=== PATIENT | female | born 1995 | race Caucasian/White ===

== ENCOUNTER → 2021-02-08 14:07 | Outpatient (BNVA) | payer OTHER, SELFPAY | PROVIDERS: Visit Provider Obstetrics & Gynecology | DX: N97.9 Female infertility, unspecified (principal); N89.8 Other specified noninflammatory disorders of vagina | CPT/HCPCS: 84702; 85025; 86850; 86900; 87491; 87591 ==

== ENCOUNTER → 2021-03-07 12:15 | Outpatient (BNVA) | payer OTHER, SELFPAY | PROVIDERS: Visit Provider Obstetrics & Gynecology | DX: Z34.90 Encounter for supervision of normal pregnancy, unspecified, unspecified trimester (principal) | CPT/HCPCS: 80053; 80307; 82950; 84315; 84443; 85027; 86592; 86762; 86803; 86850; 86900; 87086; 87340; 87806 ==

== ENCOUNTER 2021-03-22 12:17 | Outpatient (CLI) | payer OTHER, SELFPAY ==
[2021-03-22 12:34] VITALS: BP 142/96; PULSE 109; RESP 18; TEMP 36.5; O2SAT 99; BMI 41.8
[2021-03-22 13:05] VITALS: BP 133/92; PULSE 106; RESP 20; TEMP 36.6; O2SAT 97
[2021-03-22 14:05] VITALS: BP 123/84; PULSE 99; RESP 18; O2SAT 98
== END 2021-03-22 12:18 | disposition home or self-care (01) ==
LOC: OPS 12:18
PROVIDERS: Visit Provider Nurse Practitioner Family
DX: U07.1 COVID-19 (principal)
CPT/HCPCS: 96365

== ENCOUNTER → 2021-03-28 11:55 | Outpatient (BNVA) | payer OTHER, SELFPAY | PROVIDERS: Visit Provider Obstetrics & Gynecology | DX: Z34.80 Encounter for supervision of other normal pregnancy, unspecified trimester (principal); Z12.4 Encounter for screening for malignant neoplasm of cervix | CPT/HCPCS: 84315; 88175 ==

== ENCOUNTER → 2021-05-03 13:08 | Outpatient (BNVA) | payer OTHER, SELFPAY | PROVIDERS: Visit Provider Obstetrics & Gynecology | DX: O09.90 Supervision of high risk pregnancy, unspecified, unspecified trimester (principal); R74.8 Abnormal levels of other serum enzymes | CPT/HCPCS: 80053; 84315 ==

== ENCOUNTER → 2021-06-27 09:49 | Outpatient (BNVA) | payer OTHER, SELFPAY | PROVIDERS: Visit Provider Obstetrics & Gynecology | DX: O09.90 Supervision of high risk pregnancy, unspecified, unspecified trimester (principal); Z3A.00 Weeks of gestation of pregnancy not specified | CPT/HCPCS: 80053; 82950; 84315; 85027; 86850 ==

== ENCOUNTER → 2021-07-25 11:31 | Outpatient (BNVA) | payer OTHER, SELFPAY | PROVIDERS: Visit Provider Obstetrics & Gynecology | DX: O09.90 Supervision of high risk pregnancy, unspecified, unspecified trimester (principal); O98.519 Other viral diseases complicating pregnancy, unspecified trimester; U07.1 COVID-19; O99.210 Obesity complicating pregnancy, unspecified trimester; R74.8 Abnormal levels of other serum enzymes; O99.891 Other specified diseases and conditions complicating pregnancy; O26.899 Other specified pregnancy related conditions, unspecified trimester; Z67.91 Unspecified blood type, Rh negative; F41.9 Anxiety disorder, unspecified; F32.A Depression, unspecified; Z3A.00 Weeks of gestation of pregnancy not specified | CPT/HCPCS: 80053; 84315 ==

== ENCOUNTER 2021-08-06 01:53 | Inpatient (IN) | payer OTHER, SELFPAY ==
[2021-08-05] VITALS (37 sets, daily range): BP systolic 138–183; BP diastolic 68–108; PULSE 84–166; RESP 18; TEMP 36.1; O2SAT 90–100; BMI 41.1
--- NOTE | 2021-08-05 19:14 | USR_ITS ---
PROCEDURE INFORMATION: Exam: US , Limited Exam date and time: 08/05/2021 7:43 PM Age: 25 years old Clinical indication: status abnormalities: ; movements, decreased; Single gestation; Third trimester (=28 weeks 0 days); ; Additional info: Decreased movement TECHNIQUE: Imaging protocol: Real-time ultrasound of the maternal uterus with image documentation. Exam focused on the clinical indication. COMPARISON: US OB follow up [facility] 07/25/2021 10:53 AM FINDINGS: Gestation: There is a single live intrauterine fetus. Detailed anatomic assessment was not performed at this time. heart rate: cardiac activity measures 141 bpm. position: The is in cephalic position. Placenta: Placenta is fundal in position. Amniotic fluid index: Amniotic fluid index is 18.6 cm within normal limits. Median at 35 weeks is about 14 cm and 95th percentile is 24.9 cm. BIOMETRY: Gestational age (AUA): Average ultrasound biometry is 35 weeks 4 days gestation, approximately 63rd percentile. Estimated weight: Estimated weight is 2563 g, or 5 lb 10 oz. MATERNAL: Cervix: Maternal cervix is poorly visualized on this exam. Intraperitoneal space: Limited transabdominal OB ultrasound exam was performed in conjunction with biophysical profile assessment below. Other findings: BPD measures 8.6 cm, 34 weeks 3 days gestation, 27th percentile. Head circumference measures 32.1 cm, 36 weeks 1 day, 36 percentile. Abdominal circumference measures 31.7 cm, 35 weeks 4 days, 65th percentile. Femur length measures 6.5 cm, 33 weeks 3 days, 5th percentile. PROCEDURE INFORMATION: Exam: US Biophysical Profile Without Non-Stress Test Exam date and time: 08/05/2021 7:43 PM Age: 25 years old Clinical indication: status abnormalities: ; movements, decreased; Single gestation; Third trimester (=28 weeks 0 days); ; Additional info: Decreased movement TECHNIQUE: Imaging protocol: US biophysical profile without non-stress testing. COMPARISON: US OB >= 14 weeks fetus [facility] 05/01/2021 8:14 AM FINDINGS: BIOPHYSICAL PROFILE: breathing movement (BPP): 2 out of 2. body movement (BPP): 2 out of 2. tone (BPP): 2 out of 2. Amniotic fluid (BPP): 2 out of 2. US/US OB BPP wo NST 99669 IMPRESSION: 1. Limited Ob ultrasound in conjunction with biophysical profile assessment below. 2. Single live intrauterine fetus in cephalic lie with average ultrasound biometry of 35 weeks 4 days, versus clinical gestational age of 34 weeks 6 days. Measurements and EFW as described above. Suboptimally visualized maternal cervix on this exam. IMPRESSION: 1. Biophysical profile score is 8 out of 8. 2. Please refer to limited Ob ultrasound report above.
[2021-08-05 19:39] LABS: Add Urine Culture? No; Add Urine Microscopic? YES; Amorphous Sediment Urine 1+ /hpf; Bacteria Urine 1+ /hpf; Bilirubin Urine 1+ (Negative); Blood Urine Neg (Negative); Glucose Urine UA Norm (Normal); Ketones Urine 2+ (Negative); Leukocyte Esterase Urine 2+ (Negative); Mucus Urine 1+ /hpf; Nitrate Urine Negative (Negative); Protein Urine Trace (Negative); RBC Urine 0-4 /hpf (0-2); Squamous Epithelial Cell Urine 25-40 /hpf (0-5); Urine Appearance Cloudy (CLEAR); Urine Color Yellow (Yellow); Urobilinogen Urine 1 mg/dL (Negative); pH Urine 5 (5-7)
[2021-08-05 19:59] LABS: UPRO/UCREAT Ratio 0.17 mg/mg CR; Urine Creatinine 387 mg/dL (28-217); Urine Protein Random 64 mg/dL
[2021-08-05 20:18] LABS: Basophils % 0.2 %; Hematocrit 36.4 % (37.0-47.0); Hemoglobin 12.3 g/dL (11.5-15.3); Lymphocytes # 2.1 10^3/uL (0.8-4.8); Lymphocytes % 19.7 %; Mean Corpuscular HGB Conc 33.8 g/dL (30.0-36.0); Mean Corpuscular Hemoglobin 29.6 pg (28.0-34.0); Mean Corpuscular Volume 87.7 fl (81-99); Monocytes # 0.6 10^3/uL (0.2-0.9); Monocytes % 5.9 %; Neutrophils # 7.85 10^3/uL (1.8-7.7); Neutrophils % 73.8 %; Nucleated Red Blood Cells % 0 %; Platelet Count 240 10^3/cmm (130-400); Red Blood Count 4.15 10^6/uL (4.1-5.3); Red Cell Distribution Width 14.2 % (12.1-15.1); White Blood Count 10.6 10^3/uL (4.0-10.0)
[2021-08-05 20:30] LABS: Alanine Aminotransferase 14 U/L (0-33); Albumin Level 3.5 g/dL (3.5-5.2); Alkaline Phosphatase 95 IU/L (35-105); Aspartate Amino Transferase 20 U/L (0-32); Blood Urea Nitrogen 5 mg/dL (6-20); Calcium 9.3 mg/dL (8.5-10.5); Carbon Dioxide 19 mmol/L (22-29); Chloride 101 mmol/L (98-107); Globulin 2.8 g/dL (1.3-4.6); Glomerular Filtration Rate 121.8 mL/min (90-130); Glucose 73 mg/dL (65-115); Osmolality Calculated 274 mOsm/kg (285-295); Sodium 134 mmol/L (136-145); Total Bilirubin 0.4 mg/dL (0.15-1.2); Total Protein 6.3 g/dL (6.6-8.7); Uric Acid 5.4 mg/dL (2.4-5.7)
[2021-08-05 20:31] LABS: Anion Gap 17.7 (5-19); Potassium 3.7 mmol/L (3.5-5.1)
[2021-08-05] MEDS: NIFEdipine 10 mg Capsule 30 MG PO (21:03)
--- NOTE | 2021-08-05 23:45 | W.PM.OPSUD ---
Surgery/Procedure H&P Update DATE OF PROCEDURE: August 06, 2021 DATE H&P PERFORMED: 07/25/21 H&P UPDATE INFORMATION: I have reviewed H&P completed within last 30 days, I have examined patient prior to procedure and Changes to prior documentation as noted here (cervix /-3/vx/IM) PREOP DIAGNOSIS: labor pain
[2021-08-06] VITALS (350 sets, daily range): BP systolic 96–188; BP diastolic 52–100; PULSE 89–169; RESP 18; TEMP 36.2–37.9; O2SAT 87–100
[2021-08-06] MEDS: betamethasone susp 6 mg/mL 5 mL 12 MG IM (00:30)
[2021-08-06] MEDS: lactated ringers 1,000 ML 999 ML IV (00:43)
[2021-08-06] MEDS: ampicillin 2,000 MG in sodium chloride 0.9% (plus) 50 ML 100 MG IV (00:46)
[2021-08-06] MEDS: ondansetron 2 mg/ML SDV 2 mL 4 MG IVP ×4 (01:02→18:41)
--- NOTE | 2021-08-06 01:53 | P.ANESASSM_ITS ---
Pre-Anesthetic Assessment Height/Weight: Height 1.7 m Weight 119.295 kg Temp Pulse Resp BP Pulse Ox 97.0 F L 99 18 134/77 92 08/05/21 21:34 08/06/21 01:48 08/05/21 19:14 08/06/21 01:39 08/06/21 01:48 Preop Diagnosis: labor pain epidural Familial anesthetic complications: none Was Beta Nani taken within 24 hours: N/A Was Clonidine taken within 24 hours: N/A Social No alcohol and No tobacco Exam alert, oriented x 3, clear to auscultation bilaterally and regular rate & rhythm Airway Submandibular: within normal limits Cervical ROM: within normal limits Mallampati: Class II Dentition: full Pulmonary None reported CV/HEM None reported None reported Hepatic None reported GI Gastroesophageal Reflux Disease Metabolic None reported Musc/skel None reported Neuropsych Depression and Headache Anesthetic Plan ASA status: 2 Anesthesia: Regional (specify below) Risk of > 500 ml blood loss (7ml/kg in children): No Medications/Allergies Home Medications Medication Instructions Recorded Confirmed Last Taken Type prenat.vits,benji,tzl-cwzn-iwnyd 1 tab PO DAILY 03/28/21 08/06/21 08/05/21 History breast pump (Pump In Style #1 ea 07/11/21 07/25/21 Unknown Rx Advanced) sertraline 50 mg tablet (Zoloft) 50 mg PO DAILY 60 Days #60 tab 07/25/21 0 08/06/21 08/05/21 Rx Allergies Allergy/AdvReac Type Severity Reaction Status Date / Time No Known Allergies Allergy Verified 08/06/21 01:22 Current Medications Generic Name Dose Route Start Last Admin Trade Name Freq PRN Reason Stop Dose Admin Lactated Ringer's 1,000 mls @ 999 mls/hr 08/06/21 00:04 08/06/21 00:43 Lactated Ringers IV 999 mls/hr .Q1H1M PRN Administration See label comments Ondansetron HCl 4 mg 08/06/21 00:04 08/06/21 01:02 Ondansetron 2 Mg/Ml Sdv 2 Ml IVP 4 mg Q4H PRN Administration NAUSEA AND VOMITING PFSH Anesthesia Medical History No pertinent past medical history Denies diabetes, asthma, hypertension, seizures, DVT/PE PCP: None Surgical History History of surgery on arm Right arm surgery at age 5 for fractured arm. S/P tonsillectomy At the age of 6 Family History Grandfather Diabetes paternal Heart disease paternal Hyperlipidemia paternal Grandmother Hypertension maternal Denies family history of Colon cancer Ovarian cancer Breast cancer Uterine cancer Thyroid condition Stroke Female Reproductive History : 2 Data Anesthesia : 08/05/21 20:12 08/05/21 20:07 Short CBC 08/05/21 Range/Units 20:12 WBC 10.6 H (4.0-10.0) 10^3/uL Hgb 12.3 (11.5-15.3) g/dL Hct 36.4 L (37.0-47.0) % MCV 87.7 (81-99) fl Plt Count 240 (130-400) 10^3/cmm Neut % (Auto) 73.8 % Neut # (Auto) 7.85 H (1.8-7.7) 10^3/uL BMP 08/05/21 20:07 Sodium 134 L Potassium 3.7 Chloride 101 Carbon Dioxide 19 L BUN 5 L Creatinine 0.6 Glucose 73 Calcium 9.3 Liver Function 08/05/21 Range/Units 20:07 Total Bilirubin 0.4 (0.15-1.2) mg/dL AST 20 (0-32) U/L ALT 14 (0-33) U/L Alkaline Phosphatase 95 (35-105) IU/L Albumin 3.5 (3.5-5.2) g/dL Urine 08/05/21 Range/Units 19:32 Urine Color Yellow (Yellow) Urine Appearance Cloudy (CLEAR) Urine pH 5 (5-7) Ur Specific [place] 1.020 (1.005-1.030) Urine Protein Trace (Negative) Urine Glucose (UA) Norm (Normal) Urine Ketones 2+ H (Negative) Urine Nitrate Negative (Negative) Urine Bilirubin 1+ H (Negative) Ur Leukocyte Esterase 2+ H (Negative) Urine RBC 0-4 H (0-2) /hpf Urine WBC 10-15 H (0-5) /hpf Cardiac Studies: No Data to Display
[2021-08-06] MEDS: dextrose 5%-lactated ringers 1,000 ML 125 ML IV ×2 (02:02→16:48)
--- NOTE | 2021-08-06 02:36 | P.ANES_ITS ---
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 given, vitals taken during procedure using OBIX system and satisfactory throughout, patient admits to decrease pain, report of procedure to OB RN Epidural: Time Out Performed: Yes Consents Signed: Procedure Consent Consent: requested by attending/covering physician, from patient, risks and benefits reviewed and patient agrees to proceed Lumbar Level: L3-L4 Epidural position: sitting Epidural procedure: sterile prep of area, 1% lidocaine to numb the area (3 mL), 18 g needle, negative for paresthesia passed, neg for paresthesia, test dose given, 1.5% xylocaine 1:200k epi (5 mL), 0.2% Ropivacaine bolus ml (5 mL), placed PCEA, no systemic response, sterile dressing applied, L.U.D. no apparent complications and 0.2% Ropiavacaine @ mls/hr (13 mL/hr)
[2021-08-06] MEDS: ampicillin 1,000 MG in sodium chloride 0.9% (plus) 50 ML 100 MG IV ×5 (05:10→21:12)
[2021-08-06] MEDS: magnesium sulfate premix 4 GM/100 ML PREMIX IV (07:26)
[2021-08-06] MEDS: magnesium sulfate premix 20 GM/500 ML BAG IV ×2 (07:47→15:51)
[2021-08-06] MEDS: alum-mag-hydroxide-sime 30 mL UDC PO (09:32)
--- NOTE | 2021-08-06 10:47 | PM.PN ---
Subjective Subjective: Mrs. Rapp 25-year-old female G2, P0 with an estimated gestational age at 34 weeks, came to labor and delivery referring decreased movements and lower back pain. Vitals/I&O/Wt Last Vital Signs Temp 97.2 F L 08/06/21 07:38 Pulse 121 H 08/06/21 10:40 Resp 18 08/06/21 08:09 BP 111/64 08/06/21 10:33 Pulse Ox 99 08/06/21 10:40 08/05/21 08/06/21 08/06/21 22:59 06:59 14:59 Intake Total 1050 / 1050 Output Total 260 / 260 40 / 40 Balance 790 / 790 -40 / -40 Weight last 48 hrs Weight 119.295 kg Physical Exam Narrative: GA: Alert and oriented ?3. Lungs: Clear to auscultation bilaterally. Heart: Regular rhythm and rate. Abdomen: Gravid, full the height equals dates, nontender. 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 Extremities: no edema, no cyanosis, no calves pain. heart tracing: Basal rate: 140's bpm, Variability: moderate, Accelerations: present, Decelerations: absent, Contraction: q3min. Urinary Catheter Management: Kimbrough: Cath Placed During This Visit: yes Reason for Continuing Indwelling Catheter: Required Immobilization for Trauma or Surgery or Anesthesia Urinary Catheter Date of Insertion: 08/06/21 Urinary Catheter Time of Insertion: 03:02 Data : 08/05/21 20:12 08/05/21 20:07 A&P Assessment and plan (1) labor in third trimester: Mrs. Rapp 25-year-old female G2, P0 with an estimated gestational age at 34 weeks, came to labor and delivery referring decreased movements and lower back pain. During triage evaluation contractions were noted and tocolytics were given. The BPP was 10 out of 10. Eelevated blood pressure was noted and preeclampsia work-up was ordered. Initial preeclampsia work-up was negative. Patient was admitted to continue blood pressure observation then cervical changes was noted from 3 cm in dilation to 5 cm in dilation 50% effacement despite tocolytic treatment and she was admitted. Shortly after that I was notified by the nurse the patient was starting to develop some clonus and magnesium sulfate was initiated. Status: Acute Plan Repeat preeclampsia work-up. Continuous monitoring. Attestations Medical Necessity Statement*: In my professional opinion per admitting diagnosis Coding Level of Care Code Acute Radiology Nurse for Chg Fwd Diagnoses labor in third trimester O60.03
[2021-08-06 11:19] LABS: Basophils % 0.1 %; Hematocrit 37.1 % (37.0-47.0); Hemoglobin 12.1 g/dL (11.5-15.3); Lymphocytes # 1.2 10^3/uL (0.8-4.8); Lymphocytes % 10.1 %; Mean Corpuscular HGB Conc 32.6 g/dL (30.0-36.0); Mean Corpuscular Hemoglobin 29.5 pg (28.0-34.0); Mean Corpuscular Volume 90.5 fl (81-99); Mean Platelet Volume 12.3 fL (7.4-10.4); Monocytes # 0.2 10^3/uL (0.2-0.9); Monocytes % 1.8 %; Neutrophils # 10.08 10^3/uL (1.8-7.7); Neutrophils % 87.3 %; Nucleated Red Blood Cells % 0 %; Platelet Count 268 10^3/cmm (130-400); Red Cell Distribution Width 14.7 % (12.1-15.1); White Blood Count 11.6 10^3/uL (4.0-10.0)
[2021-08-06] MEDS: acetaminophen 325 mg Tablet 650 MG PO ×2 (11:37→18:09)
[2021-08-06 11:41] LABS: Urine Creatinine 308 mg/dL (28-217)
[2021-08-06 11:42] LABS: UPRO/UCREAT Ratio 0.22 mg/mg CR; Urine Appearance Hazy (CLEAR); Urine Color Dark Yellow (Yellow); Urine Protein Random 69 mg/dL
[2021-08-06 11:43] LABS: Add Urine Microscopic? YES; Bilirubin Urine 1+ (Negative); Blood Urine 3+ (Negative); Glucose Urine UA Norm (Normal); Ketones Urine 2+ (Negative); Leukocyte Esterase Urine 2+ (Negative); Nitrate Urine Negative (Negative); Protein Urine 1+ (Negative); Urobilinogen Urine 1 mg/dL (Negative); pH Urine 5 (5-7)
[2021-08-06 11:45] LABS: RBC Urine >100 /hpf (0-2); Squamous Epithelial Cell Urine 0-4 /hpf (0-5); WBC Urine 15-25 /hpf (0-5)
[2021-08-06 11:46] LABS: Bacteria Urine 2+ /hpf; Mucus Urine 1+ /hpf
[2021-08-06 11:47] LABS: Add Urine Culture? Yes
[2021-08-06 13:59] LABS: Alanine Aminotransferase 18 U/L (0-33); Albumin Level 3.3 g/dL (3.5-5.2); Alkaline Phosphatase 99 IU/L (35-105); Anion Gap 20.8 (5-19); Aspartate Amino Transferase 28 U/L (0-32); Blood Urea Nitrogen 6 mg/dL (6-20); Calcium 8.4 mg/dL (8.5-10.5); Carbon Dioxide 17 mmol/L (22-29); Chloride 99 mmol/L (98-107); Globulin 3.3 g/dL (1.3-4.6); Glomerular Filtration Rate 87.4 mL/min (90-130); Glucose 117 mg/dL (65-115); Osmolality Calculated 275 mOsm/kg (285-295); Potassium 3.8 mmol/L (3.5-5.1); Sodium 133 mmol/L (136-145); Total Bilirubin 0.4 mg/dL (0.15-1.2); Total Protein 6.6 g/dL (6.6-8.7); Uric Acid 6.9 mg/dL (2.4-5.7)
[2021-08-06 14:05] LABS: Magnesium Level (OB Only) 5.5 mg/dL (5.0-7.5)
[2021-08-06] MEDS: metoclopramide 5 mg/mL SDV 2 mL 10 MG IV (14:07)
[2021-08-06] MEDS: NIFEdipine ER (24 hr) 30 mg Tablet PO (14:28)
--- NOTE | 2021-08-06 17:00 | PC.NURSE ---
Dr. Parmar told this nurse to not give the patient oxytocin, and we would continue to monitor until further orders.
[2021-08-06 20:22] LABS: Magnesium Level (OB Only) 6.1 mg/dL (5.0-7.5)
[2021-08-06 21:36] LABS: Basophils % 0.1 %; Hematocrit 35.2 % (37.0-47.0); Hemoglobin 11.7 g/dL (11.5-15.3); Lymphocytes # 1.7 10^3/uL (0.8-4.8); Lymphocytes % 13.3 %; Mean Corpuscular HGB Conc 33.2 g/dL (30.0-36.0); Mean Corpuscular Hemoglobin 29.6 pg (28.0-34.0); Mean Corpuscular Volume 89.1 fl (81-99); Monocytes # 0.8 10^3/uL (0.2-0.9); Monocytes % 6.3 %; Neutrophils # 10.45 10^3/uL (1.8-7.7); Neutrophils % 79.6 %; Nucleated Red Blood Cells % 0 %; Platelet Count 239 10^3/cmm (130-400); Red Blood Count 3.95 10^6/uL (4.1-5.3); Red Cell Distribution Width 14.5 % (12.1-15.1); White Blood Count 13.1 10^3/uL (4.0-10.0)
[2021-08-06 21:37] LABS: Charge for UA Resulting for Rev
[2021-08-06 21:48] LABS: Urine Appearance Hazy (CLEAR); Urine Color Dark Yellow (Yellow)
[2021-08-06 21:49] LABS: Add Urine Microscopic? YES; Bilirubin Urine 1+ (Negative); Blood Urine 3+ (Negative); Glucose Urine UA Norm (Normal); Ketones Urine 2+ (Negative); Leukocyte Esterase Urine Negative (Negative); Nitrate Urine Negative (Negative); Protein Urine Neg (Negative); Urobilinogen Urine 1 mg/dL (Negative); pH Urine 5 (5-7)
[2021-08-06 21:50] LABS: Alanine Aminotransferase 24 U/L (0-33); Albumin Level 3.6 g/dL (3.5-5.2); Alkaline Phosphatase 100 IU/L (35-105); Anion Gap 19.2 (5-19); Aspartate Amino Transferase 32 U/L (0-32); Blood Urea Nitrogen 7 mg/dL (6-20); Calcium 7.9 mg/dL (8.5-10.5); Carbon Dioxide 18 mmol/L (22-29); Chloride 97 mmol/L (98-107); Glomerular Filtration Rate 87.4 mL/min (90-130); Glucose 118 mg/dL (65-115); Osmolality Calculated 271 mOsm/kg (285-295); Potassium 3.2 mmol/L (3.5-5.1); Slide Review Slide Review Perform; Sodium 131 mmol/L (136-145); Total Bilirubin 0.5 mg/dL (0.15-1.2); Total Protein 6.6 g/dL (6.6-8.7); Uric Acid 6.9 mg/dL (2.4-5.7)
[2021-08-06 21:58] LABS: UPRO/UCREAT Ratio 0.12 mg/mg CR; Urine Creatinine 251 mg/dL (28-217); Urine Protein Random 31 mg/dL
--- NOTE | 2021-08-06 22:18 | USR_ITS ---
PROCEDURE INFORMATION: Exam: US Retroperitoneal; Complete; Kidneys and Bladder Exam date and time: 08/06/2021 11:21 PM Age: 25 years old Clinical indication: Other: Blood in urine; Other: Back pain; ; Additional info: Blood in urine, back pain TECHNIQUE: Imaging protocol: Real-time ultrasound of the retroperitoneum with image documentation. Complete exam focused on the kidneys and bladder. COMPARISON: US OB BPP wo NST [id number] 08/05/2021 7:43 PM FINDINGS: Right kidney: Right kidney is 9.5 cm in length. No right hydronephrosis or shadowing stone. Left kidney: Left kidney measures 11.9 cm. No left hydronephrosis or shadowing stone. Uterus: Intrauterine is visualized. Urinary bladder: Bladder not well visualized. Other findings: Examination limited by body habitus. US/US renal BI with PV bladder IMPRESSION: 1. Examination limited by body habitus. 2. Limited but otherwise Negative examination of the kidneys.
[2021-08-07] VITALS (193 sets, daily range): BP systolic 118–160; BP diastolic 74–101; PULSE 83–117; RESP 16–17; TEMP 36.6–38.1; O2SAT 93–100
[2021-08-07] MEDS: betamethasone susp 6 mg/mL 5 mL 12 MG IM (00:30)
[2021-08-07] MEDS: ampicillin 1,000 MG in sodium chloride 0.9% (plus) 50 ML 100 MG IV ×3 (01:05→08:50)
[2021-08-07 02:16] LABS: Magnesium Level (OB Only) 6.1 mg/dL (5.0-7.5)
[2021-08-07] MEDS: magnesium sulfate premix 20 GM/500 ML BAG IV (02:18)
[2021-08-07] MEDS: acetaminophen 325 mg Tablet 650 MG PO (03:53)
[2021-08-07] MEDS: dextrose 5%-lactated ringers 1,000 ML 125 ML IV (03:55)
[2021-08-07] MEDS: alum-mag-hydroxide-sime 30 mL UDC PO (07:54)
[2021-08-07 09:17] LABS: Magnesium Level (OB Only) 6.4 mg/dL (5.0-7.5)
--- NOTE | 2021-08-07 10:00 | PC.NURSE ---
Dr. Arce gave orders to this nurse and Raphael Rivera RN to discharge patient. Orders received to stop magnesium and stop the epidural. This nurse verified orders and Dr. Arce stated that patient could leave when the magnesium had been stopped for 2 hours. This nurse and Raphael Rivera RN educated the patient on signs of preeclampsia such as increased blood pressure, headaches, blurred vision, an increase in swelling, pain in the upper abdomen or chest, or rapid weight gain. This RN urged the patient to come back to the OB department if any of these symptoms present after discharge. This nurse also educated patient on symptoms of labor including rupture of membranes, contraction strength and pattern, and any vaginal bleeding. Patient verbalized understanding and provided return education. This RN stressed the importance of keeping her doctor's appointment tomorrow and to call the OB department or [facility] if she has any questions or concerns.
--- NOTE | 2021-08-07 10:39 | PC.NURSE ---
This nurse turned magnesium off and maintenance fluids off at 1020 on 08/07/2021 due to discharge orders from Dr. Arce that were given.
--- NOTE | 2021-08-07 11:08 | P.DS_ITS ---
Discharge Providers Date of Admission: 08/06/21 01:53 Date of Discharge: August 07, 2021 Attending Provider at Admission: Yemi Parmar MD Attending Provider at Discharge: Yemi Parmar MD Diagnoses at Discharge Discharge Diagnosis (1) labor in third trimester: Status: Acute Reason for Visit Reason for Visit: Nausea, low back pain, decreased movmt Hospital Course Hospital Course The patient presented initially for low back pain. She was found to be having contractions and had very high blood pressures. Her cervix also changed. She had normal labs. She began to have clonus in bilateral LE. Magnesium sulfate was started. She also received two doses of betamethasone. She continued to have cervical change and stalled at 5 cm. She received an epidural for pain management. On Day #1, the patient had decreased urine output, which was very dark. she had sudden output of 3+ blood. She had an ultrasound to look for a stone, but none was seen. Labs were repeated several times. they remained normal. she stopped elie. on day#2, the contractions ceased, no further cervical change, her labs and blood pressures were normal. The mag sulfate was stopped and she was discharged home in stable condition. status was overall very reassuring. She was given strict labor precautions. Physical Exam Const: COMMON NORMALS: no acute distress, patient oriented x3, no limitations, healthy appearing, alert and well nourished GENERAL APPEARANCE: cooperative, comfortable, well kempt and well developed ORIENTATION/CONSCIOUSNESS: Yes awake, Yes oriented to person, Yes oriented to place and Yes oriented to time Resp: COMMON NORMALS: normal respiratory effort EFFORT & INSPECTION: Yes able to speak in complete sentences Neuro: COMMON NORMALS: patient oriented x3 SENSORIUM/ORIENTATION: Yes alert, Yes oriented to person, Yes oriented to place and Yes oriented to time Psych: APPEARANCE: Yes well kempt Urinary Catheter Management: Kimbrough: Cath Placed During This Visit: yes, but has since been removed by the nurse Reason for Continuing Indwelling Catheter: Decision to DC Catheter Urinary Catheter Date of Insertion: 08/06/21 Urinary Catheter Time of Insertion: 03:02 Date Urinary Catheter Removed: 08/07/21 Time Urinary Catheter Discontinued: 10:20 Discharge Data Studies Completed and Pending Completed Studies During Hospitalization Category Date Time Status US OB BPP wo NST 08887 Stat Ultrasound 08/05/21 19:14 Completed US renal BI with PV bladder Stat Ultrasound 08/06/21 22:18 Completed Pending at discharge Category Date Time Status Urine Culture Stat Lab 08/06/21 11:05 Results Radiology Impressions Obstetrics US/Biophysical Profile 08/05/21 19:14 IMPRESSION: 1. Limited Ob ultrasound in conjunction with biophysical profile assessment below. 2. Single live intrauterine fetus in cephalic lie with average ultrasound biometry of 35 weeks 4 days, versus clinical gestational age of 34 weeks 6 days. Measurements and EFW as described above. Suboptimally visualized maternal cervix on this exam. IMPRESSION: 1. Biophysical profile score is 8 out of 8. 2. Please refer to limited Ob ultrasound report above. Renal Ultrasound 08/06/21 22:18 IMPRESSION: 1. Examination limited by body habitus. 2. Limited but otherwise Negative examination of the kidneys. Laboratory Results WBC 13.1 10^3/uL (4.0-10.0) H 08/06/21 21: RBC 3.95 10^6/uL (4.1-5.3) L 08/06/21 21:01 Hgb 11.7 g/dL (11.5-15.3) 08/06/21 21:01 Hct 35.2 % (37.0-47.0) L 08/06/21 21:01 MCV 89.1 fl (81-99) 08/06/21 21:01 MCH 29.6 pg (28.0-34.0) 08/06/21 21:01 MCHC 33.2 g/dL (30.0-36.0) 08/06/21 21:01 RDW 14.5 % (12.1-15.1) 08/06/21 21:01 Plt Count 239 10^3/cmm (130-400) 08/06/21 21:01 MPV 13.0 fL (7.4-10.4) H 08/06/21 21:01 Neut % (Auto) 79.6 % 08/06/21 21: Lymph % (Auto) 13.3 % 08/06/21 21: [place] % (Auto) 6.3 % 08/06/21 21: Eos % (Auto) 0.0 % 08/06/21 21:01 Baso % (Auto) 0.1 % 08/06/21 21:01 Neut # (Auto) 10.45 10^3/uL (1.8-7.7) H 08/06/21 21:01 Lymph # (Auto) 1.7 10^3/uL (0.8-4.8) 08/06/21 21:01 [place] # (Auto) 0.8 10^3/uL (0.2-0.9) 08/06/21 21:01 Eos # (Auto) 0.0 10^3/uL (0.0-0.8) 08/06/21 21:01 Baso # (Auto) 0.0 10^3/uL (0.0-0.1) 08/06/21 21:01 Nucleated RBC % (auto) 0 % 08/06/21 21:01 Nucleated RBCs # 0.0 /100WBC 08/06/21 21:01 Sodium 131 mmol/L (136-145) L 08/06/21 21:01 Potassium 3.2 mmol/L (3.5-5.1) L 08/06/21 21:01 Chloride 97 mmol/L (98-107) L 08/06/21 21:01 Carbon Dioxide 18 mmol/L (22-29) L 08/06/21 21:01 Anion Gap 19.2 (5-19) H 08/06/21 21:01 BUN 7 mg/dL (6-20) 08/06/21 21:01 Creatinine 0.8 mg/dL (0.5-0.9) 08/06/21 21:01 GFR Calculation 87.4 mL/min (90-130) L 08/06/21 21:01 Glucose 118 mg/dL (65-115) H 08/06/21 21:01 Calculated Osmolality 271 mOsm/kg (285-295) L 08/06/21 21:01 Uric Acid 6.9 mg/dL (2.4-5.7) H 08/06/21 21:01 Calcium 7.9 mg/dL (8.5-10.5) L 08/06/21 21:01 Magnesium 6.4 mg/dL (5.0-7.5) 08/07/21 08:05 Total Bilirubin 0.5 mg/dL (0.15-1.2) 08/06/21 21:01 AST 32 U/L (0-32) 08/06/21 21:01 ALT 24 U/L (0-33) 08/06/21 21:01 Alkaline Phosphatase 100 IU/L (35-105) 08/06/21 21:01 Total Protein 6.6 g/dL (6.6-8.7) 08/06/21 21:01 Albumin 3.6 g/dL (3.5-5.2) 08/06/21 21: Globulin 3.0 g/dL (1.3-4.6) 08/06/21 21:01 Urine Color Dark yellow (Yellow) 08/06/21 20:45 Urine Appearance Hazy (CLEAR) A 08/06/21 20:45 Urine pH 5 (5-7) 08/06/21 20:45 Ur Specific [place] 1.030 (1.005-1.030) 08/06/21 20:45 Urine Protein Neg (Negative) 08/06/21 20:45 Urine Glucose (UA) Norm (Normal) 08/06/21 20:45 Urine Ketones 2+ (Negative) H 08/06/21 20:45 Urine Blood 3+ (Negative) H 08/06/21 20:45 Urine Nitrate Negative (Negative) 08/06/21 20:45 Urine Bilirubin 1+ (Negative) H 08/06/21 20:45 Urine Urobilinogen 1 mg/dL (Negative) H 08/06/21 20:45 Ur Leukocyte Esterase Negative (Negative) 08/06/21 20:45 Urine RBC >100 /hpf (0-2) H 08/06/21 11:05 Urine WBC 15-25 /hpf (0-5) H 08/06/21 11:05 Ur Squamous Epith Cells 0-4 /hpf (0-5) H 08/06/21 11:05 Amorphous Sediment Not Reportable 08/06/21 11:05 Urine Bacteria 2+ /hpf (NONE) H 08/06/21 11:05 Urine Mucus 1+ /hpf 08/06/21 11:05 U Random Total Protein 31 mg/dL 08/06/21 20:45 Urine Creatinine 251 mg/dL (28-217) H 08/06/21 20:45 Protein/Creatinin Ratio 0.12 mg/mg CR 08/06/21 20:45 Vitals Last Vital Signs Temp 97.9 F 08/07/21 08:13 Pulse 94 08/07/21 11:05 Resp 16 08/07/21 09:00 BP 131/81 08/07/21 10:53 Pulse Ox 98 08/07/21 11:05 Discharge Plan Discharge Patient Disposition: Home Condition: Stable Prescriptions: Continued (DME) breast pump [Pump In Style Advanced] Device See Rx Instructions .ROUTE .MEDSUPPLY Qty: 1 0RF Rx Instructions: As directed sertraline [Zoloft] 50 mg tablet 50 mg PO DAILY 60 Days Qty: 60 1RF prenat.vits,benji,yro-nixc-ghcai Tablet 1 tab PO DAILY 0RF Discharge Orders: Discharge Order (Routine); Ordered 08/07/21 Ordered By: Sabi Arce Discharge Diet: Usual diet Discharge Activity: Limit activity as instructed Patient Instructions: Ampicillin (By injection), Betamethasone (By injection), Labor (DC), Preeclampsia During (DC), Epidural Anesthesia (DC), Opioid Safety, OB Undelivered Discharge Discharge Attestations Time Spent in Discharge Care*: less than 30 min Quality Metrics Clinical Quality Measures [ No reported AMI, CVA or VTE this stay] Coding Level of Care Code Acute Chg FW DC note Diagnoses labor in third trimester O60.03
--- NOTE | 2021-08-08 15:06 | ANE.PACU2 ---
Inpatient post-anesthesia follow up: Airway intact: Yes Vital signs: Temperature 98.2 F Pulse Rate 98 Respiratory Rate 16 Blood Pressure 139/88 Pulse Oximetry 99 Oxygen Delivery Me thod Room Air Oxygen Flow Rate Fraction of Inspir ed Oxygen Hydration adequate: Yes Nausea and vomiting: No Pain level: 1 Mental status: Baseline Additional Comments: EMR review
== END 2021-08-07 13:22 | disposition home or self-care (01) | DRG 832 ==
LOC: OPOB 01:53 → OBGYN 01:53
PROVIDERS: Obstetrics & Gynecology; Admitting Provider Obstetrics & Gynecology; Visit Provider Obstetrics & Gynecology
DX: O60.03 Preterm labor without delivery, third trimester (principal); O36.0930 Maternal care for other rhesus isoimmunization, third trimester, not applicable or unspecified; O16.3 Unspecified maternal hypertension, third trimester; Z3A.34 34 weeks gestation of pregnancy; O99.213 Obesity complicating pregnancy, third trimester; O99.343 Other mental disorders complicating pregnancy, third trimester; O36.8130 Decreased fetal movements, third trimester, not applicable or unspecified; F41.8 Other specified anxiety disorders
CPT/HCPCS: 36415; 51702; 59025; 76770; 76819; 76857; 80053; 81001; 81003; 82570; 83735; 84156; 84550; 85025; 87086; 96372; 99211; J0290; J0702; J2405; J2765; J2795; J3475

== ENCOUNTER → 2021-08-08 12:59 | Outpatient (BNVA) | payer OTHER, SELFPAY | PROVIDERS: Visit Provider Obstetrics & Gynecology | DX: O09.90 Supervision of high risk pregnancy, unspecified, unspecified trimester (principal); X58.XXXA Exposure to other specified factors, initial encounter | CPT/HCPCS: 84315; 87081 ==

== ENCOUNTER 2021-08-10 18:41 | Outpatient (CLI) | payer OTHER, SELFPAY ==
[2021-08-10] VITALS (28 sets, daily range): BP systolic 113–147; BP diastolic 61–80; PULSE 66–92; RESP 16; TEMP 36.2–36.6; O2SAT 97–100; BMI 42.3
--- NOTE | 2021-08-10 19:21 | USR_ITS ---
PROCEDURE INFORMATION: Exam: US Biophysical Profile Without Non-Stress Test Exam date and time: 08/10/2021 7:50 PM Age: 25 years old Clinical indication: Other: contractions; ; Additional info: labor TECHNIQUE: Imaging protocol: US biophysical profile without non-stress testing. COMPARISON: US OB BPP wo NST [id number] 08/05/2021 7:43 PM FINDINGS: heart rate: 144 bpm BIOPHYSICAL PROFILE: breathing movement (BPP): 0 out of 2. body movement (BPP): 2 out of 2. tone (BPP): 2 out of 2. Amniotic fluid (BPP): 2 out of 2. US/US OB BPP wo NST 17586 IMPRESSION: biophysical profile score 8
[2021-08-10] MEDS: lactated ringers 1,000 ML 999 ML IV (19:45)
[2021-08-10] MEDS: terbutaline 1 mg/mL INJ 0.25 MG SUBCUT (19:47)
[2021-08-10 19:52] LABS: Bilirubin Urine Neg (Negative); Blood Urine Neg (Negative); Glucose Urine UA Norm (Normal); Ketones Urine Negative (Negative); Leukocyte Esterase Urine 1+ (Negative); Nitrate Urine Negative (Negative); Protein Urine Neg (Negative); RBC Urine 0-4 /hpf (0-2); Specific Gravity, Urine 1.005 (1.005-1.030); Urine Appearance Clear (CLEAR); Urine Color Straw (Yellow); Urobilinogen Urine Norm (Negative); pH Urine 7 (5-7)
[2021-08-10 19:53] LABS: Add Urine Culture? Yes; Bacteria Urine TRACE /hpf
--- NOTE | 2021-08-10 21:29 | PC.NURSE ---
Received call from [facility] to report no breathing BPP score 08/09. Finding and score already reported to Dr Parmar at 837.
== END 2021-08-10 21:35 | disposition home or self-care (01) ==
LOC: OPOB 18:42 → OBGYN 18:43
PROVIDERS: Visit Provider Obstetrics & Gynecology
DX: O26.899 Other specified pregnancy related conditions, unspecified trimester (principal); Z3A.00 Weeks of gestation of pregnancy not specified; R10.9 Unspecified abdominal pain
CPT/HCPCS: 59025; 76819; 81001; 87077; 87086; 87186; 96372; 99211; J3105

== ENCOUNTER 2021-08-12 00:03 | Outpatient (CLI) | payer OTHER, SELFPAY ==
[2021-08-12] VITALS (44 sets, daily range): BP systolic 128–167; BP diastolic 78–102; PULSE 58–99; RESP 15–16; TEMP 36.2; O2SAT 97–99; BMI 43.0
[2021-08-12 00:42] LABS: Add Urine Microscopic? NO; Charge for UA Resulting for Rev
[2021-08-12 00:44] LABS: Basophils % 0.2 %; Eosinophils % 0.2 %; Hematocrit 30.8 % (37.0-47.0); Hemoglobin 10.9 g/dL (11.5-15.3); Lymphocytes # 2.8 10^3/uL (0.8-4.8); Lymphocytes % 31.6 %; Mean Corpuscular HGB Conc 35.4 g/dL (30.0-36.0); Mean Corpuscular Hemoglobin 29.5 pg (28.0-34.0); Mean Corpuscular Volume 83.5 fl (81-99); Mean Platelet Volume 12.4 fL (7.4-10.4); Monocytes # 0.6 10^3/uL (0.2-0.9); Monocytes % 6.6 %; Neutrophils # 5.41 10^3/uL (1.8-7.7); Neutrophils % 61.1 %; Nucleated Red Blood Cells % 0 %; Platelet Count 201 10^3/cmm (130-400); Red Blood Count 3.69 10^6/uL (4.1-5.3); Red Cell Distribution Width 13.5 % (12.1-15.1); White Blood Count 8.9 10^3/uL (4.0-10.0)
[2021-08-12 00:58] LABS: Protein Urine Neg (Negative); Urine Appearance Clear (CLEAR); Urine Color Straw (Yellow); pH Urine 8 (5-7)
[2021-08-12 00:59] LABS: Bilirubin Urine Neg (Negative); Blood Urine Neg (Negative); Glucose Urine UA Norm (Normal); Ketones Urine Negative (Negative); Leukocyte Esterase Urine Negative (Negative); Nitrate Urine Negative (Negative); Sulfosalicylic Acid Urine Negative (Negative); Urobilinogen Urine Norm (Negative)
[2021-08-12 01:02] LABS: Alanine Aminotransferase 35 U/L (0-33); Albumin Level 3.1 g/dL (3.5-5.2); Alkaline Phosphatase 84 IU/L (35-105); Anion Gap 15.1 (5-19); Aspartate Amino Transferase 25 U/L (0-32); Blood Urea Nitrogen 5 mg/dL (6-20); Calcium 8.9 mg/dL (8.5-10.5); Carbon Dioxide 21 mmol/L (22-29); Chloride 104 mmol/L (98-107); Globulin 2.8 g/dL (1.3-4.6); Glomerular Filtration Rate 150.3 mL/min (90-130); Glucose 105 mg/dL (65-115); Osmolality Calculated 280 mOsm/kg (285-295); Potassium 4.1 mmol/L (3.5-5.1); Sodium 136 mmol/L (136-145); Total Bilirubin 0.2 mg/dL (0.15-1.2); Total Protein 5.9 g/dL (6.6-8.7); Uric Acid 4.4 mg/dL (2.4-5.7)
[2021-08-12] MEDS: labetalol 5 mg/mL SDV 20mL 20 MG IVP (01:06)
[2021-08-12] MEDS: dextrose 5%-lactated ringers 1,000 ML 125 ML IV (01:09)
[2021-08-12] MEDS: magnesium sulfate premix 4 GM/100 ML PREMIX IV (01:09)
[2021-08-12 01:11] LABS: Urine Creatinine 20 mg/dL (28-217); Urine Protein Random 4 mg/dL
[2021-08-12] MEDS: magnesium sulfate premix 20 GM/500 ML BAG IV (01:29)
--- NOTE | 2021-08-12 01:57 | PM.OBGYHP ---
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 Rapp is a 25 year old 3 para 0020 with an LMP of 12/10/2020 and an EDC of 09/16/2021 by dates and consistent with 8 week ultrasound, placing her at 35 weeks and 0 days gestation She presents to labor and delivery with reports of severely elevated blood pressure. She was monitoring her blood pressure and has been sending blood pressures to me to review. States her blood pressures have all been elevated in the 140s to 150s. She did have 1 severe elevation 2 days ago however repeating it after 15 minutes showed that the blood pressure return to nonsevere levels. Throughout this time she denied any preeclamptic symptoms. She stated that on Saturday-08/11/2021 she developed a headache about 6 out of 10 in intensity at about 11:00 and took a Tylenol and try to sleep. She did wake up still having a headache although it was not as severe. She denies any chest pain, visual changes. She did not feel quite right and took her blood pressure and blood pressure was persistently in the severe range and as a result she came into labor and delivery. She also states that she has been feeling more flushed than normal. She does report good movement and denies contractions, vaginal discharge, vaginal bleeding. -On Labor and Delivery she was noted to have severe blood pressure elevations in the 160s over 110s. She was not noted to be anxious and heart rate was normal. She denied having any pain other than a mild headache and she declined any medication for the headache. She was admitted to labor and delivery and started on magnesium sulfate for the diagnosis of at least severe gestational hypertension. Lab work was drawn to rule out preeclampsia and protein creatinine ratio was sent. She was given IV labetalol as per hypertensive crisis and her blood pressure responded Review of Systems General: Reports: 10 or more systems reviewed and unremarkable except in HPI and below Const: Denies: fever(s), chills, change in appetite, change in weight, fatigue, malaise or change in sleep pattern Eyes: Denies: change in vision, eye discomfort, eye discharge or seeing flashes ENMT: Denies: throat pain, odynophagia, hoarseness, bleeding gums, ear discharge, nasal discharge or nasal congestion Card: Denies: chest pain, irregular heart rhythm, edema, swelling of feet/ankles, dyspnea on exertion or leg pain with exertion Resp: Denies: dyspnea, productive cough, wheezing or chest congestion GI: Denies: abdominal pain, nausea, vomiting, heartburn, diarrhea, constipation, change in bowel habits or hematochezia : Denies: flank pain, dysuria, urinary frequency, urinary urgency, urinary incontinence, genital lesions, vaginal odor, vaginal bleeding, vaginal discharge, dysmenorrhea, change in menstrual flow, prolapse symptoms, dyspareunia or sexual dysfunction Musc: Denies: neck pain, back pain, joint pain, joint swelling or muscle cramps Skin/Breast: Denies: rash, pruritus, breast tenderness, nipple discharge or breast mass Neuro: Reports: headache(s); Denies: numbness in extremities or seizure-like activity Psych: Denies: anxiety, depression, mood swings or change in appetite Endo: Denies: cold intolerance, flushing, hot flashes or change in body appearance Jay/Lymph: Denies: easy bruising, easy bleeding or enlarged lymph nodes All/Imm: Denies: urticaria, tongue swelling, acute wheezing or itchy eyes Medications/Allergies Home Medications Medication Instructions Recorded Confirmed Last Taken Type prenat.vits,benji,ioh-psne-qoyat 1 tab PO DAILY 03/28/21 08/10/21 08/10/21 History breast pump (Pump In Style #1 ea 07/11/21 08/08/21 Unknown Rx Advanced) sertraline 50 mg tablet (Zoloft) 50 mg PO DAILY 60 Days #60 tab 07/25/21 08/10/21 08/10/21 Rx Allergies Allergy/AdvReac Type Severity Reaction Status Date / Time No Known Allergies Allergy Verified 08/10/21 18:56 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 S/P tonsillectomy At the age of 6 Family History Grandfather Diabetes paternal Heart disease paternal Hyperlipidemia paternal Grandmother Hypertension maternal Denies family history of Colon cancer Ovarian cancer Breast cancer Uterine cancer Thyroid condition Stroke Supplemental [facility] Information: - Tobacco Use: Denies, never smoked Drug Use: Denies Alcohol Use: Used to drink 1 or 2 times a week. None since finding out she was . 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 Last Well Woman Appointment: Prior to 2019 per patient Other Female Reproductive History: Menstrual History Comment: Menarche at the age of 12 with regular 28-day cycles lasting for 6 days. Sexual History: Sexual History Comment: Coitarche at age 19, less than 5 lifetime partners, she and her Jose have been together since 2014. He is also a music promoter in the high school at [place] STD History Comment: Denies history of sexually transmitted diseases Contraception: Contraception History Comment: Patient has used oral contraceptives in the past for contraception. Last used control pills in 2015. ---> natural methods of contraception/condoms for contraception History History History 3 Term 0 Miscarriages/Ectopic 2 0 Living Children 0 Other History: 3 Para 0020 SAB x 2 1--->09/2019, SAB at 8 weeks, no D & C required. Had a positive test when she was 1 week late and 2 to 3 weeks later had bleeding and went to the emergency room Where she was told that she had a miscarriage. Did receive RhoGam in the emergency room 3--->05/2020, SAB at 4 weeks, no D & C required. States that she had a faint positive urine test and 2 days later started her cycle. Did the urine test the day she missed her menstrual cycle.--Possible chemical . 3--->Current Care SHEA Calculator Estimated Delivery Date Method Current WG Current Estimate 09/16/21 LMP (Certain) 35w 0d Other Estimates 09/16/21 Ultrasound #1 35w 0d Expected Delivery Route/Plan Vaginal Specific Issues/Plans RH NEGATIVE-RhoGAM candidate-RhoGAM given at 28 weeks-we will reassess RUBELLA NONIMMUNE-MMR ANXIETY AND DEPRESSION- no medication prepregnancy-Zoloft 50 mg once a day started on 03/07/2021-doing well-continue--refill provided until 2 months . ELEVATED AST-repeat levels at 32 weeks COVID POSITIVE at 14 weeks-status post immunoglobulin infusion on 03/22/2021 ELEVATED BLOOD PRESSURE-likely gestational hypertension GBS Positive-antibiotics in labor LABOR-status post steroids on 08/05 and 08/06/2021 Vitals/I&O/Wt Last Vital Signs Pulse 71 08/12/21 01:52 BP 147/87 08/12/21 01:44 Pulse Ox 98 08/12/21 01:52 Physical Exam Narrative: General: well developed, well nourished, no acute distress Neuro/Psych: alert, oriented to time, place and person. Neck: No thyromegaly Heart: S1-S2 heard, regular rate and rhythm. Lungs: Clear to auscultation bilaterally. Abdomen: Soft, gravid, nontender Legs: No pedal edema no calf tenderness. Negative Homans sign, reflexes +1 bilaterally Back: No CVA tenderness Skin: Normal over abdomen Cervix: 4-1/2 cm, 50%, -3 station, cephalic by bedside ultrasound Data : 08/12/21 00:31 08/12/21 00:31 Other Labs: Protein creatinine ratio 0.22 AST/ALT-25/35 Results OB Labs LABS: --- 3 02/08/2022 Blood group-O NEGATIVE Antibody screen negative Quantitative beta-hC,093 CBC:8.4<13.9/42.9> 347 Gonorrhea: Negative Chlamydia: Negative 03/07/2021 Blood type: O NEGATIVE Antibody screen : Negative Intake CBC: 7.7<13.7/41.4> 281 Cystic fibrosis: Declined Rubella : Nonimmune Hepatitis B surface antigen: Nonreactive Hepatitis C antibody: Nonreactive RPR: Nonreactive HIV: Nonreactive Drug screen: Negative Urine culture: 60,000 70,000 contaminants, no GBS NIPT: Declined BUN/creatinine-3/0.4 AST/ALT-/42---elevated-likely secondary to the nausea-we will repeat at 20 weeks Early GCT: BMI 45 103 TSH-0.69-normal 03/28/2021 Pap smear: Negative for intraepithelial lesion or malignancy 04/04/2021 Quad screen/ AFP: Declined 05/03/2021: AST/ALT-23/37-still minimally elevated-reassess at 28 weeks BUN/creatinine-3/0.5 06/27/2021 CBC-6<12.7/38.7> 209 GCT-124 Antibody screen: Negative RhoGAM given today Potassium-3.1--below-K-Dur 20 mEq 2 times a day for 3 days. Increase bananas in diet BUN/creatinine-3/0.5 AST/ALT-33/31---AST is just minimally elevated--the ALT has completely come back down to normal however the AST is minimally elevated. repeat these levels in about 1 month 07/25/2021: CMP: AST/ALT-17/17 08/05/2021([facility]) CBC-10.6<12.3/36.4> 240 BUN/creatinine-6/0.8 AST/ALT- Protein creatinine ratio 0.17 08/06/2021([facility]) CBC-11.6<12.1/37.1> 268 BUN/creatinine-7/0.8 AST/ALT- Protein creatinine ratio : 0.12 Uric acid: 6.9 08/08/2021 GBS: Positive---ampicillin in labor PAP Patient denies history of abnormal pap smears. 03/28/2021----([facility])----> negative for intraepithelial lesion normal 09/2019---([place], [place] )--->normal per patient--records requested and never received OB Ultrasound LMP-12/10/2020 SHEA by LMP-09/16/2021 1) 02/10/2021([facility]-dating) AUA-8w6d SHEA by sono-09/16/2021 S=D ---->Single live intrauterine measuring 8 weeks and 6 days. This is consistent with LMP dating and establishes due date as per LMP of 09/16/2021. Bilateral adnexa appear normal-no obvious adnexal masses. No free fluid. 2) 05/01/2021([facility]-anatomy) AUA-20w4d SHEA by sono-09/14/2021 S=D -----> single live intrauterine , 20 weeks and 4 days, posterior grade 1 placenta without previa-lower edge not clearly seen-no previa but cannot rule out low-lying placenta-repeat evaluation in 4 weeks. 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 Exam was limited by patient body habitus and position. Recommend repeat sonogram at 24 weeks versus level 2 sonogram-patient desires level 2 sonogram 3) 05/30/2021([facility]-anatomy) AUA-24w5d SHEA by sono-09/14/2021 S=D ---------> single live intrauterine , breech, posterior grade 2 placenta without previa, S VEP 6.6 cm, LAURA 20 cm, EFW 736 g, 1 pound 10 ounces, 49 percentile, cervix closed measuring 3.5 cm, male, right ovary appears normal. Left ovary not visualized. Anatomy visualized normal and complete. Recommend interval sonogram for growth every 6 weeks because of history of Covid 4) 07/04/2021([facility]-growth) AUA-30w4d SHEA by sono-09/08/2021 S=D ---------> single live intrauterine , cephalic, posterior grade 1 placenta without previa, LAURA 20.4 cm, SV 6.6 cm, cervix closed measuring 4.5 cm, EFW 1542 g, 3 pounds 6 ounces, 67 percentile. 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 6) 08/05/2021([facility] [place]-BP) AUA-35w4d S=D ----> single live intrauterine , cephalic, fundal placenta, EFW 63 percentile, 2563 g, 5 pounds 10 ounces, LAURA 18.6 cm Colonoscopy 2019--->Normal per patient. (Performed for constipation) A&P Assessment and plan (1) GBS (group B Streptococcus carrier), +RV culture, currently : Status: Acute (2) Gestational [-induced] hypertension without significant proteinuria, third trimester: Status: Acute (3) labor in third trimester: Status: Acute (4) COVID-19 affecting , antepartum: Status: Acute (5) Supervision of high risk , antepartum: Status: Acute (6) Obesity affecting , antepartum: Status: Acute (7) Rubella non-immune status, antepartum: Status: Acute (8) Rh negative, antepartum: Status: Acute (9) Anxiety and depression: Status: Acute Plan Assessment: 25-year-old 3 para 0-0-2-0 at 35 weeks and 0 days gestation, Gestational hypertension with severe features GBS positive History of labor-status post steroids on 08/05/2021 at 08/06/2021 Status post COVID in the first trimester Morbid obesity with a BMI of 42 Rubella nonimmune Rh- Anxiety and depression on Zoloft Plan: I discussed with Ms. Rapp and her that based on her severe blood pressure elevations and new onset headache that I think the diagnosis at this time is gestational hypertension with severe features. Reviewed level results of blood work which was overall within normal limits including normal protein creatinine ratio. Uric acid levels have normalized however her ALT levels are minimally elevated. Discussed that all the labs are normal given the symptoms and blood pressures I feel like delivery is warranted. Given that she is only 35 weeks I would recommend transfer to [place] where she has NICU capabilities. Patient understands this. She would like to be [facility] to [facility]. -Given diagnosis of severe features she was started on magnesium sulfate with a 4 g bolus and 2 g an hour after this. -Attempt was made to place catheter to calculate urine output however it was very uncomfortable for patient and she declined. Plan on doing bedpan every hour -Given her severe blood pressure elevations she was given a single dose of labetalol 20 mg at 1 AM and blood pressures since then have been in the 140s/150s over 90s. -If her blood pressure stays stable over the next hour will call [facility] in [place] and plan for transfer. -All her questions were answered and she agrees with the current plan of care. I spent 55 minutes with the patient in discussion and counseling as documented above This documentation was created by [employer] director underwriter sales software (known for inherent director underwriter sales error). Every effort was made to assure accuracy of director underwriter sales. Any obvious errors or omissions should be clarified with the author of the document. Attestations Medical Necessity Statement*: Patient is admitted for severe gestational hypertension. 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
--- NOTE | 2021-08-12 02:08 | PM.TDS ---
Transfer Summary Providers Date of Discharge/Transfer: 08/12/21 Attending Provider at Admission: fiona dillon Attending Provider at Transfer: Fiona Deluna MD Transfer Plans: Anticipated date of transfer: 08/12/21. Receiving Facility: [facility]-Labor and Delivery. Receiving Provider: Dr. Constantino. Diagnoses at Discharge Discharge Diagnosis (1) GBS (group B Streptococcus carrier), +RV culture, currently : Status: Acute (2) Gestational [-induced] hypertension without significant proteinuria, third trimester: Status: Acute (3) labor in third trimester: Status: Acute (4) COVID-19 affecting , antepartum: Status: Acute (5) Supervision of high risk , antepartum: Status: Acute (6) Obesity affecting , antepartum: Status: Acute (7) Rubella non-immune status, antepartum: Status: Acute (8) Rh negative, antepartum: Status: Acute (9) Anxiety and depression: Status: Acute Reason for Visit Reason for Visit Elevated Blood Pressures Hospital Course Hospital Course Ms. Rapp is a 25 year old 3 para 0020 with an LMP of 12/10/2020 and an EDC of 09/16/2021 by dates and consistent with 8 week ultrasound, placing her at 35 weeks and 0 days gestation She presents to labor and delivery on 08/12/2021 with reports of severely elevated blood pressure.? She was monitoring her blood pressure and has been sending blood pressures to me to review.? States her blood pressures have all been elevated in the 140s to 150s.? She did have 1 severe elevation 2 days ago however repeating it after 15 minutes showed that the blood pressure return to nonsevere levels.? Throughout this time she denied any preeclamptic symptoms.? She stated that on Saturday-08/11/2021 she developed a headache about 6 out of 10 in intensity at about 11:00 and took a Tylenol and try to sleep.? She did wake up still having a headache although it was not as severe.? She denies any chest pain, visual changes.? She did not feel quite right and took her blood pressure and blood pressure was persistently in the severe range and as a result she came into labor and delivery.? She also states that she has been feeling more flushed than normal.? She does report good movement and denies contractions, vaginal discharge, vaginal bleeding. -On Labor and Delivery she was noted to have severe blood pressure elevations in the 160s over 110s.? She was not noted to be anxious and heart rate was normal.? She denied having any pain other than a mild headache and she declined any medication for the headache. She was admitted to labor and delivery and started on magnesium sulfate for the diagnosis of at least severe gestational hypertension. Lab work showed normal protein creatinine ratio confirming this diagnosis. Lab work was drawn to rule out preeclampsia and protein creatinine ratio was sent.? She was given IV labetalol as per hypertensive crisis and her blood pressure. With this her blood pressure was no longer in the severe range although continued to be elevated in the 140s to 150s over 90s. Since her blood pressures remained stable I called report to Dr. Constantino at [facility] and she accepted transfer. She stated that they would start ampicillin for delivery when patient reached [place]. -Assessment: 25-year-old 3 para 0-0-2-0 at 35 weeks and 0 days gestation, Gestational hypertension with severe features GBS positive History of labor-status post steroids on 08/05/2021 at 08/06/2021 Status post COVID in the first trimester Morbid obesity with a BMI of 42 Rubella nonimmune Rh- Anxiety and depression on Zoloft Plan: I discussed with Ms. Rapp and her that based on her severe blood pressure elevations and new onset headache that I think the diagnosis at this time is gestational hypertension with severe features.? Reviewed level results of blood work which was overall within normal limits including normal protein creatinine ratio.? Uric acid levels have normalized however her ALT levels are minimally elevated.? Discussed that all the labs are normal given the symptoms and blood pressures I feel like delivery is warranted.? Given that she is only 35 weeks I would recommend transfer to [place] where she has NICU capabilities.? Patient understands this.? She would like to be transferred to [facility]. -Given diagnosis of severe features she was started on magnesium sulfate with a 4 g bolus and 2 g an hour after this. -Attempt was made to place catheter to calculate urine output however it was very uncomfortable for patient and she declined.? Plan on doing bedpan every hour -Given her severe blood pressure elevations she was given a single dose of labetalol 20 mg at 1 AM and blood pressures since then have been in the 140s/150s over 90s. -Since blood pressures have essentially remained stable and patient's headache has resolved with treatment, patient is stable for transfer. Report/Case discussed with Dr. Constantino, SOLUTION DESIGN AND ANALYSIS MANAGER on-call at [facility] and she accepted transfer and agrees with current diagnosis. Plan of care was discussed with patient and she is well agrees with transfer and denies any new symptoms. tracing was category 1 throughout with no contractions. Will transfer her to [facility], Data Studies Completed and Pending Pending at discharge Category Date Time Status Magnesium Level (OB Only) Q6H Lab 08/12/21 07:00 Uncollected Labs from last 24 hours 08/12/21 08/12/21 08/12/21 00:31 00:31 00:31 WBC RBC Hgb Hct MCV MCH MCHC RDW Plt Count MPV Neut % (Auto) Lymph % (Auto) [place] % (Auto) Eos % (Auto) Baso % (Auto) Neut # (Auto) Lymph # (Auto) [place] # (Auto) Eos # (Auto) Baso # (Auto) Nucleated RBC % (auto) Nucleated RBCs # Sodium 136 Potassium 4.1 Chloride 104 Carbon Dioxide 21 L Anion Gap 15.1 BUN 5 L Creatinine 0.5 GFR Calculation 150.3 H Glucose 105 Calculated Osmolality 280 L Uric Acid 4.4 Calcium 8.9 Total Bilirubin 0.2 AST 25 ALT 35 H Alkaline Phosphatase 84 Total Protein 5.9 L Albumin 3.1 L Globulin 2.8 Urine Color Straw Urine Appearance Clear Urine pH 8 H Ur Specific [place] 1.010 Urine Protein Neg Urine Glucose (UA) Norm Urine Ketones Negative Urine Blood Neg Urine Nitrate Negative Urine Bilirubin Neg Prot Sulfosalicylic Acd Negative Urine Urobilinogen Norm Ur Leukocyte Esterase Negative U Random Total Protein 4 Urine Creatinine 20 L Protein/Creatinin Ratio 0.20 08/12/21 00:31 WBC 8.9 RBC 3.69 L Hgb 10.9 L Hct 30.8 L MCV 83.5 MCH 29.5 MCHC 35.4 RDW 13.5 Plt Count 201 MPV 12.4 H Neut % (Auto) 61.1 Lymph % (Auto) 31.6 [place] % (Auto) 6.6 Eos % (Auto) 0.2 Baso % (Auto) 0.2 Neut # (Auto) 5.41 Lymph # (Auto) 2.8 [place] # (Auto) 0.6 Eos # (Auto) 0.0 Baso # (Auto) 0.0 Nucleated RBC % (auto) 0 Nucleated RBCs # 0.0 Sodium Potassium Chloride Carbon Dioxide Anion Gap BUN Creatinine GFR Calculation Glucose Calculated Osmolality Uric Acid Calcium Total Bilirubin AST ALT Alkaline Phosphatase Total Protein Albumin Globulin Urine Color Urine Appearance Urine pH Ur Specific [place] Urine Protein Urine Glucose (UA) Urine Ketones Urine Blood Urine Nitrate Urine Bilirubin Prot Sulfosalicylic Acd Urine Urobilinogen Ur Leukocyte Esterase U Random Total Protein Urine Creatinine Protein/Creatinin Ratio Laboratory Last Values WBC 8.9 10^3/uL (4.0-10.0) 08/12/21 00:31 RBC 3.69 10^6/uL (4.1-5.3) L 08/12/21 00:31 Hgb 10.9 g/dL (11.5-15.3) L 08/12/21 00:31 Hct 30.8 % (37.0-47.0) L 08/12/21 00:31 MCV 83.5 fl (81-99) 08/12/21 00:31 MCH 29.5 pg (28.0-34.0) 08/12/21 00:31 MCHC 35.4 g/dL (30.0-36.0) 08/12/21 00:31 RDW 13.5 % (12.1-15.1) 08/12/21 00:31 Plt Count 201 10^3/cmm (130-400) 08/12/21 00:31 MPV 12.4 fL (7.4-10.4) H 08/12/21 00:31 Neut % (Auto) 61.1 % 08/12/21 00:31 Lymph % (Auto) 31.6 % 08/12/21 00:31 [place] % (Auto) 6.6 % 08/12/21 00:31 Eos % (Auto) 0.2 % 08/12/21 00:31 Baso % (Auto) 0.2 % 08/12/21 00:31 Neut # (Auto) 5.41 10^3/uL (1.8-7.7) 08/12/21 00:31 Lymph # (Auto) 2.8 10^3/uL (0.8-4.8) 08/12/21 00:31 [place] # (Auto) 0.6 10^3/uL (0.2-0.9) 08/12/21 00:31 Eos # (Auto) 0.0 10^3/uL (0.0-0.8) 08/12/21 00:31 Baso # (Auto) 0.0 10^3/uL (0.0-0.1) 08/12/21 00:31 Nucleated RBC % (auto) 0 % 08/12/21 00: Nucleated RBCs # 0.0 /100WBC 08/12/21 00:31 Sodium 136 mmol/L (136-145) 08/12/21 00:31 Potassium 4.1 mmol/L (3.5-5.1) 08/12/21 00: Chloride 104 mmol/L (98-107) 08/12/21 00: Carbon Dioxide 21 mmol/L (22-29) L 08/12/21 00:31 Anion Gap 15.1 (5-19) 08/12/21 00: BUN 5 mg/dL (6-20) L 08/12/21 00: Creatinine 0.5 mg/dL (0.5-0.9) 08/12/21 00:31 GFR Calculation 150.3 mL/min (90-130) H 08/12/21 00: Glucose 105 mg/dL (65-115) 08/12/21 00: Calculated Osmolality 280 mOsm/kg (285-295) L 08/12/21 00:31 Uric Acid 4.4 mg/dL (2.4-5.7) 08/12/21 00: Calcium 8.9 mg/dL (8.5-10.5) 08/12/21 00: Total Bilirubin 0.2 mg/dL (0.15-1.2) 08/12/21 00:31 AST 25 U/L (0-32) 08/12/21 00: ALT 35 U/L (0-33) H 08/12/21 00:31 Alkaline Phosphatase 84 IU/L (35-105) 08/12/21 00:31 Total Protein 5.9 g/dL (6.6-8.7) L 08/12/21 00: Albumin 3.1 g/dL (3.5-5.2) L 08/12/21 00:31 Globulin 2.8 g/dL (1.3-4.6) 08/12/21 00:31 Urine Color Straw (Yellow) 08/12/21 00:31 Urine Appearance Clear (CLEAR) 08/12/21 00:31 Urine pH 8 (5-7) H 08/12/21 00:31 Ur Specific [place] 1.010 (1.005-1.030) 08/12/21 00:31 Urine Protein Neg (Negative) 08/12/21 00:31 Urine Glucose (UA) Norm (Normal) 08/12/21 00:31 Urine Ketones Negative (Negative) 08/12/21 00:31 Urine Blood Neg (Negative) 08/12/21 00:31 Urine Nitrate Negative (Negative) 08/12/21 00:31 Urine Bilirubin Neg (Negative) 08/12/21 00:31 Prot Sulfosalicylic Acd Negative (Negative) 08/12/21 00:31 Urine Urobilinogen Norm mg/dL (Negative) 08/12/21 00:31 Ur Leukocyte Esterase Negative (Negative) 08/12/21 00:31 U Random Total Protein 4 mg/dL 08/12/21 00:31 Urine Creatinine 20 mg/dL (28-217) L 08/12/21 00:31 Protein/Creatinin Ratio 0.20 mg/mg CR 08/12/21 00:31 Recent Clincial Data Last Vital Signs Pulse 74 08/12/21 02:02 BP 147/82 08/12/21 02:00 Pulse Ox 97 08/12/21 02:02 Vital Signs Pulse BP Pulse Ox 08/12/21 02:02 74 97 08/12/21 02:00 72 147/82 08/12/21 01:57 85 98 08/12/21 01:52 71 98 08/12/21 01:47 71 99 08/12/21 01:44 70 147/87 08/12/21 01:42 68 98 08/12/21 01:37 76 99 08/12/21 01:32 76 97 08/12/21 01:29 86 142/85 08/12/21 01:27 91 99 08/12/21 01:22 79 98 08/12/21 01:17 72 98 08/12/21 01:14 75 157/97 08/12/21 01:12 81 98 08/12/21 01:07 63 98 08/12/21 01:02 72 99 08/12/21 00:59 71 167/101 08/12/21 00:57 68 98 08/12/21 00:52 65 97 08/12/21 00:47 65 98 08/12/21 00:44 70 164/102 08/12/21 00:42 65 99 08/12/21 00:37 63 97 08/12/21 00:29 58 L 156/94 08/12/21 00:13 61 158/94 Vitals Last Vital Signs Pulse 74 08/12/21 02:02 BP 147/82 08/12/21 02:00 Pulse Ox 97 08/12/21 02:02 TS Medications Medications Hydralazine HCl (Hydralazine 20 Mg/Ml Inj 1 Ml) 5 mg IVP PRN PRN; Protocol PRN Reason: HYPERTENSION Hydralazine HCl (Hydralazine 20 Mg/Ml Inj 1 Ml) 10 mg IVP PRN PRN; Protocol PRN Reason: HYPERTENSION Hydralazine HCl (Hydralazine 20 Mg/Ml Inj 1 Ml) 20 mg IVP PRN PRN; Protocol PRN Reason: HYPERTENSION Dextrose/Lactated Ringer's (Dextrose 5%-Lactated Ringers) 1,000 mls @ 125 mls/hr IV .Q8H [facility] Last Admin: 08/12/21 01:09 Dose: 125 mls/hr Documented by: Magnesium Sulfate (Magnesium Sulfate Premix) 20 gm in 500 mls @ 50 mls/hr IV .Q10H [facility] Last Admin: 08/12/21 01:29 Dose: 50 mls/hr Documented by: Labetalol HCl (Labetalol 5 Mg/Ml Sdv 20ml) 20 mg IVP PRN PRN; Protocol PRN Reason: HYPERTENSION Last Admin: 08/12/21 01:06 Dose: 20 mg Documented by: Labetalol HCl (Labetalol 5 Mg/Ml Sdv 20ml) 40 mg IVP PRN PRN; Protocol PRN Reason: HYPERTENSION Labetalol HCl (Labetalol 5 Mg/Ml Sdv 20ml) 80 mg IVP PRN PRN; Protocol PRN Reason: HYPERTENSION Labetalol HCl (Labetalol 5 Mg/Ml Sdv 20ml) 40 mg IVP PRN PRN; Protocol PRN Reason: HYPERTENSION Discontinued Medications Magnesium Sulfate (Magnesium Sulfate Premix) 4 gm in 100 mls @ 300 mls/hr IV ONCE ONE Stop: 08/12/21 01:09 Last Admin: 08/12/21 01:09 Dose: 300 mls/hr Documented by: Allergies No Known Allergies Allergy (Verified 08/10/21 18:56) Home Medications prenat.vits,benji,[id number] 1 tab PO DAILY 03/28/21 [History Confirmed 08/10/21] breast pump (Pump In Style Advanced) #1 ea 07/11/21 [Rx Confirmed 08/08/21] sertraline 50 mg tablet (Zoloft) 50 mg PO DAILY 60 Days #60 tab 07/25/21 [Rx Confirmed 08/10/21] Discharge Plan Discharge Patient Disposition: Xfer Other Prescriptions: No Action (DME) breast pump [Pump In Style Advanced] Device See Rx Instructions .ROUTE .MEDSUPPLY Qty: 1 0RF Rx Instructions: As directed sertraline [Zoloft] 50 mg tablet 50 mg PO DAILY 60 Days Qty: 60 1RF prenat.vits,benji,[id number] Tablet 1 tab PO DAILY 0RF Transfer Attestations Time Spent in Transfer Care: greater than 30 min Quality Metrics Clinical Quality Measures [ No reported AMI, CVA or VTE this stay] Coding Level of Care Code 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
== END 2021-08-12 03:16 | disposition other institution (70) ==
LOC: OPOB 00:03 → OBGYN 00:04
PROVIDERS: Visit Provider Obstetrics & Gynecology
DX: O60.03 Preterm labor without delivery, third trimester (principal); Z3A.35 35 weeks gestation of pregnancy; O99.820 Streptococcus B carrier state complicating pregnancy; O13.3 Gestational [pregnancy-induced] hypertension without significant proteinuria, third trimester; O98.519 Other viral diseases complicating pregnancy, unspecified trimester; Z86.16 Personal history of COVID-19; O99.891 Other specified diseases and conditions complicating pregnancy; O99.213 Obesity complicating pregnancy, third trimester
CPT/HCPCS: 36415; 59025; 80053; 81003; 82570; 84156; 84550; 85025; 99211; J3475; J3490

== ENCOUNTER → 2021-08-22 09:56 | Outpatient (BNVA) | payer OTHER, SELFPAY | PROVIDERS: Visit Provider Obstetrics & Gynecology | DX: R39.9 Unspecified symptoms and signs involving the genitourinary system (principal); O72.1 Other immediate postpartum hemorrhage | CPT/HCPCS: 85027; 87086 ==

== ENCOUNTER → 2021-09-18 10:50 | Outpatient (BNVA) | payer OTHER, SELFPAY | PROVIDERS: Visit Provider Obstetrics & Gynecology | DX: R30.0 Dysuria (principal) | CPT/HCPCS: 80053; 84443; 85025; 87086 ==

== ENCOUNTER → 2022-01-22 08:51 | Outpatient (BNVA) | payer OTHER, SELFPAY | PROVIDERS: PCP Family Medicine; Visit Provider Family Medicine | DX: F32.A Depression, unspecified (principal); F41.9 Anxiety disorder, unspecified; R55 Syncope and collapse; R63.5 Abnormal weight gain; Z23 Encounter for immunization | CPT/HCPCS: 80053; 82607; 84439; 84443; 85025 ==

== ENCOUNTER 2022-02-13 07:10 | Outpatient (CLI) | payer OTHER, SELFPAY ==
--- NOTE | 2022-02-13 07:15 | MR_ITS ---
WS: [id number] MRI HEAD WITH CONTRAST TECHNIQUE: Sagittal T1, T2 axial, T2 axial FLAIR, axial susceptibility weighted imaging, axial diffus ion weighted images, and coronal T2 images were obtained. Pre and post-T1 axial and post T1 coronal i mages. ADC and FSPGR images. CLINICAL INFORMATION: daily episodes of blurry vision falling COMPARISON: None. FINDINGS: No evidence of restricted diffusion to suggest acute ischemia. Ventricular system and basal cisterns are patent. No hydrocephalus. A few T2 hyperintense lesions in the supratentorial white matter most p rominent in the LEFT frontal periventricular deep white matter. This masslike ovoid T2 hyperintense l esion measures 16 x 14 mm abutting the genu of the corpus callosum. No significant mass effect. Addit ional smaller lesion adjacent to the LEFT temporal horn measuring 7 mm. Small amount of T2 hyperinten sity about the occipital horns. No associated gadolinium enhancement. Normal posterior fossa. Normal vascular flow voids at the skull base. No extra axial fluid collection s. Normal optic chiasm and pituitary infundibulum. Normal cavernous sinuses and Meckel's cave. MR/MR head wo/w con [id number] IMPRESSION: 1. A few T2 hyperintense lesions in the supratentorial white matter the larges t adjacent to the LEFT frontal horn in the deep frontal white matter measuring 16 x 14 mm. Additional lesion adjacent to the LEFT temporal horn measuring 7 mm . No abnormal gadolinium enhancement. 2. Findings are nonspecific but differential considerations include demyelinat ing disease such as multiple sclerosis, ADEM, sequelae of prior PRES considerin g status. Additional considerations such as vasculitis, PML, and lo w-grade glioma less likely. Recommend neurology consultation and correlation [facility] CSF sampling. 3. No hydrocephalus. 4. No hemosiderin on susceptibly weighted images. 5. No restricted diffusion to suggest acute ischemia. 6. No other suspicious findings.
== END 2022-02-13 07:11 | disposition home or self-care (01) ==
LOC: RAD 07:11
PROVIDERS: PCP Family Medicine; Visit Provider Family Medicine
DX: H53.8 Other visual disturbances (principal); R26.89 Other abnormalities of gait and mobility; R29.6 Repeated falls; R55 Syncope and collapse; G93.9 Disorder of brain, unspecified
CPT/HCPCS: 70553; A9577

== ENCOUNTER → 2022-03-13 13:59 | Outpatient (BNVA) | payer OTHER, SELFPAY | PROVIDERS: PCP Family Medicine; Visit Provider Family Medicine | DX: M62.838 Other muscle spasm (principal); R93.0 Abnormal findings on diagnostic imaging of skull and head, not elsewhere classified | CPT/HCPCS: 80053; 83735 ==

== ENCOUNTER → 2022-05-22 12:05 | Outpatient (BNVA) | payer OTHER, SELFPAY | PROVIDERS: PCP Family Medicine; Referring Provider Family Medicine; Visit Provider Specialist | DX: G35 Multiple sclerosis (principal); R29.90 Unspecified symptoms and signs involving the nervous system; G37.9 Demyelinating disease of central nervous system, unspecified; G43.019 Migraine without aura, intractable, without status migrainosus | CPT/HCPCS: 36415; 80503; 82040; 82042; 82784; 82945; 83873; 83916; 84157; 86592; 87070; 87075; 87205; 89050 ==

== ENCOUNTER 2022-05-23 10:02 | Emergency (ER) | payer OTHER, SELFPAY ==
[2022-05-23 10:07] VITALS: PULSE 106; TEMP 36.9; O2SAT 95; BMI 41.5
[2022-05-23] MEDS: ketorolac 30 mg/mL INJ IVP (10:28)
[2022-05-23] MEDS: sodium chlor 0.9% + KCl 20 mEq 20 MEQ/1,000 ML BAG 125 MEQ IV (10:29)
[2022-05-23] MEDS: promethazine 25 mg/mL SDV 1 mL IM (10:35)
[2022-05-23] MEDS: acetaminophen 1,000 MG/100 ML PIGGYBACK 400 MG IV (10:55)
--- NOTE | 2022-05-23 10:55 | PC.PHAR ---
pt states she is still taking sertraline 50mg qam ext med history shows filled 01/22/22 30d/s pt states had a build up of this medication-pt states she started the sumatriptan last night states dm was out of the topamax 100mg states not started as of 05/23/22-notes are made in the pharmacy comments
[2022-05-23] MEDS: sodium chloride 0.9% 1,000 ML 999 ML IV (11:02)
--- NOTE | 2022-05-23 11:07 | W.ED.HA ---
HPI - Headache General: Chief Complaint: Nausea/Vomiting/Diarrhea Stated Complaint: spinal tap yes/n/v Time Seen by Provider: 05/23/22 10:03 Source: patient Mode of arrival: wheelchair History of Present Illness: 26-year-old female who presents to the emergency room with complaints of headache. She has a chronic migraine issue she has seen Dr. Burgos yesterday as part of her work-up she had a lumbar tap done after lumbar tap now she has a worsening headache although she does not notice a huge improvement lying down she reports it goes numb at 10 of 10 to an 8 of 10. She has been nauseous with some vomiting as well. MD elicited complaint: headache Pertinent past history: other (Lumbar tap yesterday) Onset (ago): hour(s) Quality & Timing: throbbing Exacerbating factors: sitting/standing Relieving factors: other (Lying down) Associated symptoms: Deny chest pain, confusion, cough, diaphoresis, eye pain, eye redness, fever(s), lightheadedness, loss of vision, malaise, nausea, neck stiffness, numbness, paresthesias, photophobia, pre-syncope, rash, seizures, short of breath, sound sensitivity, syncope, vomiting or weakness Review of Systems Const: Denies: fever(s), chills, malaise or diaphoresis ENMT: Denies: throat pain, ear or mastoid pain, nasal discharge or nasal congestion Card: Denies: chest pain, lightheadedness, syncope or pre-syncope Resp: Denies: dyspnea, productive cough or non-productive cough GI: Denies: abdominal pain, nausea or vomiting : Denies: flank pain, difficulty voiding, dysuria, urinary frequency or urinary urgency Skin/Breast: Denies: rash Neuro: Denies: confusion PFSH ED PFSH: Medical History Anxiety and depression Surgical History History of surgery on arm Right arm surgery at age 5 for fractured arm. 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 [employer] Physical Exam Const: GENERAL APPEARANCE: cooperative and comfortable ORIENTATION/CONSCIOUSNESS: Yes awake, Yes oriented to person, Yes oriented to place and Yes oriented to time HENMT: COMMON NORMALS: normocephalic, atraumatic and hearing grossly normal bilaterally HEAD & SCALP: normocephalic and atraumatic Eye: DIRECT OPHTHALMOSCOPY: No photophobia Resp: COMMON NORMALS: normal respiratory effort, No retractions, No use of accessory muscles and clear to auscultation bilaterally AUSCULTATION: clear to auscultation bilaterally Cardio: COMMON NORMALS: regular rate, regular rhythm and No murmurs present (Cardio) RATE: regular rate RHYTHM: regular rhythm GI: COMMON NORMALS: Soft to palpation and No hepatosplenomegaly present AUSCULTATION: Yes normoactive bowel sounds PALPATION: Yes Soft to palpation, No Tenderness to palpation present (GI), No Guarding due to palpation present (GI) and Yes No hepatosplenomegaly present Extremity: COMMON NORMALS: normal to inspection, capillary refill normal, no clubbing, cyanosis or edema, no calf tenderness and no pedal edema Neuro: SENSORIUM/ORIENTATION: Yes oriented to person, Yes oriented to place and Yes oriented to time Skin: COMMON NORMALS: no rashes or lesions noted GENERAL SKIN EXAM: no rashes or lesions noted Course Vital Signs: Vital signs: Vital Signs Temperature 98.4 F 05/23/22 10:07 Pulse Rate 96 05/23/22 13:19 Respiratory Rate 17 05/23/22 13:19 Blood Pressure 149/109 05/23/22 13:19 Pulse Oximetry 100 05/23/22 13:19 Oxygen Delivery Me thod 05/23/22 10:07 MDM - Headache Medical Decision Making Improved after fluids IV acetaminophen and Toradol and Phenergan. We will discharge patient home she is feeling well enough to go advised her to remain on her back although I do not think this is a post spinal tap headache based on the fact that she does not get much relief when she lays down did contact Dr. Burgos's office. Dr. Burgos asked that she follow-up with her either via phone or a follow-up appointment they will make further adjustments to her headache regimen return if she has worsening problems Medical Records I reviewed the patient's medical records. Lab Data I reviewed the patient's lab results. Discharge Plan Discharge Patient Disposition: Home Clinical Impression: Common migraine with intractable migraine, Demyelinating disease of central nervous system Condition: Stable Prescriptions: No Action topiramate [Topamax] 100 mg tablet See Rx Instructions .ROUTE .COMPLEX Qty: 60 0RF Rx Instructions: Take half a tablet with dinner for 7 days. Then begin taking a whole tablet with dinner sumatriptan succinate 100 mg tablet See Rx Instructions PO .COMPLEX Qty: 60 0RF Rx Instructions: take 1 tab at onset of headache with tylenol/advil/or caffeine; if no relief, may repeat 1 tab after at least 2 hrs; max = 2 tabs/24 hrs PO baclofen 5 mg tablet 5 mg PO BID PRN (Reason: muscle spasm) Qty: 60 0RF Midol Complete 500-60-15 mg Tablet 2 tab PO Q4H PRN (Reason: Cramps) Rx Instructions: DNExceed 4 doses/24h Tylenol Ex Str Rapid Release 500 mg Tablet 1,000 mg PO Q6H PRN (Reason: Pain) sertraline 50 mg tablet 50 mg PO QAM Discharge Orders: Discharge ED (Routine); Ordered 05/23/22 Ordered By: Jose Talamantes Referrals: April Enrique MD [Primary Care Provider] - Discharge Diet: Usual diet Discharge Activity: Increase activity as tolerated Patient Instructions: Opioid Safety, Pain Management Activity Restrictions/Additional Instructions: Follow-up with Dr. Burgos. Contact her office today after you leave. Rest the remainder of today. 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
[2022-05-23 13:19] VITALS: BP 149/109; PULSE 96; RESP 17; O2SAT 100
== END 2022-05-23 13:20 | disposition home or self-care (01) ==
PROVIDERS: Emergency Provider Family Medicine; PCP Family Medicine
DX: G43.019 Migraine without aura, intractable, without status migrainosus (principal); G37.9 Demyelinating disease of central nervous system, unspecified
CPT/HCPCS: 96365; 96367; 96372; 96375; 99284; J0131; J1885; J2550; J2930; J3480; J7030

== ENCOUNTER 2022-05-24 06:55 | Day surgery (SDC) | payer OTHER, SELFPAY ==
[2022-05-24 07:10] VITALS: BMI 41.8
[2022-05-24 07:19] VITALS: BP 111/62; PULSE 85; RESP 18; TEMP 36.8; O2SAT 97
[2022-05-24] MEDS: ondansetron 2 mg/ML SDV 2 mL 4 MG IVP (07:45)
[2022-05-24 07:48] VITALS: RESP 18; O2SAT 97
[2022-05-24] MEDS: fentaNYL 50 mcg/mL INJ 2mL IVP (07:48)
--- NOTE | 2022-05-24 08:08 | ANES.PREANE2 ---
Pre-Anesthetic Assessment Height/Weight: Height 1.7 m Weight 121.109 kg Temp Pulse Resp BP Pulse Ox O2 Del Method 98.2 F 85 18 111/62 97 05/24/22 07:19 05/24/22 07:19 05/24/22 07:19 05/24/22 07:19 05/24/22 07:19 05/24/22 07:19 Preop Diagnosis: Postdural Puncture Headache Familial anesthetic complications: None Last intake: > 8 hrs Social No alcohol and No tobacco Exam alert, oriented x 3, clear to auscultation bilaterally and regular rate & rhythm Airway Dentition: full Metabolic Morbid Obesity Neuropsych Headache Anesthetic Plan ASA status: 2 Anesthesia: Nurse-admin mod sedation Risk of > 500 ml blood loss (7ml/kg in children): No Medications/Allergies Home Medications Medication Instructions Recorded Confirmed Last Taken Type baclofen 5 mg tablet 5 mg PO BID PRN muscle spasm #60 03/14/22 05/24/22 05/23/22 Rx tabs sumatriptan succinate 100 mg tablet See Rx Instructions PO .COMPLEX 05/22/22 05/24/22 05/22/22 Rx #60 tabs acetaminophen 500 mg tablet 1,000 mg PO Q6H PRN Pain 05/23/22 05/24/22 Unknown History uyiiznkjaezwb-hfpskwht-cogrpakipd 2 tab PO Q4H PRN Cramps 05/23/22 05/24/22 Unknown History 500 mg-60 mg-15 mg tablet (Midol Complete) sertraline 50 mg tablet 50 mg PO QAM 05/23/22 05/24/22 05/23/22 History topiramate 100 mg tablet (Topamax) 100 mg PO DAILY 05/24/22 05/24/22 Unknown History Allergies Allergy/AdvReac Type Severity Reaction Status Date / Time No Known Allergies Allergy Verified 05/23/22 10:51 [facility] Anesthesia Medical History Anxiety and depression Surgical History History of surgery on arm Right arm surgery at age 5 for fractured arm. 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
--- NOTE | 2022-05-24 08:09 | P.ANES_ITS ---
Anesthesia Procedures Procedure/Date: 05/24/22 Epidural: Time Out Performed: Yes Consents Signed: Procedure Consent Consent: requested by attending/covering physician, from patient, risks and benefits reviewed and patient agrees to proceed Lumbar Level: L4-L5 Epidural position: sitting Epidural procedure: sterile prep of area, 1% lidocaine to numb the area and 18 g needle Additional Comments: 20 cc sterile blood drawn from L AC via butterfly and injected into epidural space after JENNIFER to saline/air at L3/4 with 18g Tuohy Fentanyl 50 mcg and Zofran 4 mg administered Proceduralists: Tiana Olson DO, Tre Ortega ENGINEERING DOCUMENTATION SPECIALIST Patient reported immediate improvement in headache
--- NOTE | 2022-05-24 08:11 | PC.NURSE ---
patient came into ops, visibly in pain. states headache pain is 10/10, sensitive to light. she was brought into prep room 12, changed into gown, laid down. assessed by anesthesia for blood patch procedure. patient signed consent for blood patch procedure. patients family member (grandpa) updated in waiting room.
[2022-05-24 09:21] VITALS: PULSE 88; RESP 19; O2SAT 97
--- NOTE | 2022-05-24 09:24 | PC.NURSE ---
patient assessed by anesthesia, discharge order received. explained signs of infection, patient understood. patient states head feels much better, just a feeling of pressure now. [facility].
--- NOTE | 2022-05-25 13:10 | PM.MISC ---
Miscellaneous Note Purpose of Documentation: Received telephone call from Jocelin, patient's mother. Apparently the blood patch only provided relief long enough for the patient's ride home. Still having 8/10 pain. Discussed options with patient, including repeat blood patch, but given lack of beneficial effect and patient's habitus creating difficulty withplacement of first blood patch, there is high concern for creating a second dural puncture. Patient informed of availability of aminophylline infusion in ER, but this would provide only symptomatic relief for a day or so. Educated mother that headaches last on average 7 to 14 days and resolve on their own and can be ameliorated with tylenol, ibuprofen, caffeine, fluids, and recumbent positioning as needed. Also asked patient to keep Dr. Burgos informed of progress if it doesn't resolve or if it gets worse.
== END 2022-05-24 09:05 | disposition home or self-care (01) ==
PROVIDERS: PCP Family Medicine; Visit Provider Anesthesiology
DX: G97.1 Other reaction to spinal and lumbar puncture (principal); R51.9 Headache, unspecified
CPT/HCPCS: 62273; J2405; J3010

== ENCOUNTER 2022-07-04 15:40 | Outpatient (CLI) | payer OTHER, SELFPAY ==
--- NOTE | 2022-07-04 16:00 | MR_ITS ---
WS: [id number] MRI CERVICAL SPINE NONCONTRAST TECHNIQUE: Sagittal T1, T2 and STIR imaging. Axial T2, gradient, and fiesta imaging. CLINICAL INFORMATION: G35 - Multiple sclerosis COMPARISON: None. FINDINGS: Straightening of the normal cervical lordosis. Cord signal is normal. Slight anterolisthesis C4 on C5 . No high-grade central canal narrowing. No enhancing lesions to indicate active disease. No suspicio us T2 hyperintense demyelinating lesions in the cervical cord. C2-C3: Normal. C3-C4: Normal. C4-C5: Normal. C5-C6: Mild LEFT facet arthropathy. Spinal canal and foramen are patent. C6-C7: Normal. C7-T1: Normal. T1-T2: Normal. Visualized brain stem structures: Normal. Prevertebral soft tissues: Normal. MR/MR cervical spine wo/w [id number] IMPRESSION: 1. Straightening of the normal cervical lordosis. Cord signal is normal. 2. No suspicious demyelinating lesions in the cervical cord. No enhancing lesi ons to indicate active disease. 3. Mild LEFT facet arthropathy C5-C6. 4. No other suspicious findings.
[2022-07-04] MEDS: gadobenate dimeglumine 20 mL vial IV (16:35)
== END 2022-07-04 15:41 | disposition home or self-care (01) ==
LOC: RAD 15:47
PROVIDERS: PCP Family Medicine; Visit Provider Psychiatry & Neurology Neurology
DX: G35 Multiple sclerosis (principal); M47.812 Spondylosis without myelopathy or radiculopathy, cervical region
CPT/HCPCS: 72156; A9577

== ENCOUNTER 2022-07-09 11:33 | Outpatient (CLI) | payer OTHER, SELFPAY ==
--- NOTE | 2022-07-09 11:45 | US_ITS ---
WS: [id number] US transvaginal [id number] HISTORY: R10.2 - Pelvic and perineal pain COMPARISON: None available. Uterus: 6.5 cm x 5.7 cm x 2.9 cm. Normal size retroverted uterus. No fibroid or mass identified. Endometrium: 0.4 cm. Normal. Right ovary: 2.5 cm x 1.9 cm x 1.9 cm. Normal size and vascularity, no cystic or solid mass. Numerous small follicles. No ovarian enlargement. Left ovary: 2.5 cm x 1.9 cm x 1.5 cm. Normal size and vascularity, no cystic or solid masses. Numerous small follicles. No ovarian enlargement. No free fluid in the cul-de-sac. US/US transvaginal [id number] IMPRESSION: 1. Normal transvaginal pelvic ultrasound. 2. Normal endometrium.
== END 2022-07-09 11:34 | disposition home or self-care (01) ==
PROVIDERS: PCP Family Medicine; Visit Provider Obstetrics & Gynecology
DX: R10.2 Pelvic and perineal pain (principal)
CPT/HCPCS: 76830

== ENCOUNTER → 2022-10-12 10:08 | Outpatient (BNVA) | payer OTHER, SELFPAY | PROVIDERS: PCP Family Medicine; Visit Provider Family Medicine | DX: R39.9 Unspecified symptoms and signs involving the genitourinary system (principal); N39.0 Urinary tract infection, site not specified | CPT/HCPCS: 81000 ==